=== PATIENT | female | born 1985 | race Caucasian/White ===

== ENCOUNTER 2019-06-21 20:25 | Emergency (ER) | payer OTHER, SELFPAY ==
[2019-06-21 20:46] VITALS: BP 103/69; PULSE 79; RESP 16; TEMP 36.4; O2SAT 100; BMI 19.8
--- NOTE | 2019-06-21 22:19 | ED.WOUNDLAC ---
HPI - Wound/Laceration General Chief Complaint: Wound/Laceration Stated Complaint: Laceration right hand Time Seen by Provider: 06/21/19 21:33 Source: patient Mode of arrival: ambulatory Limitations: no limitations History of Present Illness HPI narrative: 34-year-old female nonsmoker, otherwise healthy presents with laceration on her right hand after she was helping her child open a new pocket knife while camping locally. She has minimal pain and bleeding and full range of motion, strength and sensation. Her tetanus will need to be updated today. She denies other injury and is otherwise well and free of complaint Onset (ago): minute(s) Extremity Location: Right: hand Place: outdoors Patient tetanus UTD: No Context: accidental Associated symptoms: none Related Data Allergies Allergy/AdvReac Type Severity Reaction Status Date / Time No Known Drug Allergies Allergy Verified 06/21/19 20:50 Review of Systems Constitutional Denies chills, Denies fever(s), Denies lethargy and Denies weakness Eyes Denies change in vision, Denies eye discharge, Denies irritation and Denies loss of vision ENT Ears, Nose, Mouth, and Throat: Denies change in voice, Denies neck pain and Denies sore throat Cardiovascular Denies chest pain, Denies irregular heart rhythm, Denies lightheadedness, Denies palpitations, Denies dyspnea, Denies dyspnea on exertion and Denies orthopnea Respiratory Denies cough, Denies dyspnea, Denies dyspnea on exertion and Denies wheezing Gastrointestinal Gastrointestinal: Denies abdominal pain, Denies change in bowel habits, Denies diarrhea, Denies nausea and Denies vomiting Genitourinary Denies hematuria, Denies flank pain, Denies urinary incontinence and Denies urinary urgency Musculoskeletal Denies neck pain Integumentary/Breasts Denies pruritus, Denies erythema, Denies rash and Reports wounds Neurologic Denies confusion, Denies loss of vision and Denies weakness Psychiatric Denies anxiety, Denies confusion, Denies depression, Denies homicidal ideation and Denies suicidal ideation Endocrine Denies palpitations Hematologic/Lymphatic Denies easy bruising Allergic/Immunologic Denies wheezing PFSH Social History Smoking Status: Never smoker Social History Smoking Status: Never smoker Exam Narrative Exam Narrative: GEN: AOx3 and in mild distress EYES: Pupils are equal, round, and reactive to light and accommodation. Extraoccular muscles are intact bilaterally. There is no subconjunctival hemorrhage or exudate. CHEST: Lungs are clear to auscultation bilaterally and free of wheezes, rales, or rhonchi. Heart rate is regular rhythm, there are no murmurs, clicks, rubs, or gallops. There is no chest wall tenderness. ABD: Abdomen is soft and nontender. There is no guarding or rebound. Bowel sounds are normal in all 4 quadrants. There is no mass or organomegaly. EXT: 2 cm linear, clean laceration overlying the thenar eminence of right hand. Visualized in a bloodless field and no deep structures involved. Full strength and sensation with cap refill less than 2 seconds Full painless ROM of all extremities with no loss of sensation or strength. SKIN: Warm, pink, and dry. No erythema or rash Initial Vital Signs Initial Vital Signs: Vital Signs Temperature 97.6 F 06/21/19 20:46 Pulse Rate 79 06/21/19 20:46 Respiratory Rate 16 06/21/19 20:46 Blood Pressure 103/69 06/21/19 20:46 Pulse Oximetry 100 06/21/19 20:46 Procedures Laceration Repair Laceration 1: Site: hand Side (If applicable): right Size (cm): 2 Description: linear Depth: simple, single layer Local Anesthetic: lidocaine 1% Amount of anesthesia used (mL): 3 Pre-repair: wound explored and deep structures intact Skin layer closed with: nylon Size (cm): 5-0 Number of sutures: 4 Course Orders Ordered: Discontinued Medications Diphtheria/Tetanus/Acell Pertussis (Adacel) 0.5 ml IM .ONCE ONE Stop: 06/21/19 22:49 Last Admin: 06/21/19 22:55 Dose: 0.5 ml Tetanus/Diphtheria Toxoids (Td) 0.5 ml IM .ONCE ONE Stop: 06/21/19 22:44 Last Admin: 06/21/19 22:48 Dose: Not Given Vital Signs - 8 hr 06/21/19 20:46 06/21/19 23:07 Temperature 97.6 F Pulse Rate 79 64 Respiratory Rate 16 16 Blood Pressure 103/69 Blood Pressure [Left Arm] 109/60 Pulse Oximetry 100 99 Discharge Plan Departure Patient Disposition: Home Clinical Impression: Laceration Discharge Date/Time: 06/21/19 23:00 Interventions: ED Discharge Assessment Last Done: 06/21/19 23:00 Instructions: DI for Laceration Repair Activity Restrictions/Additional Instructions: Please keep the wound clean and dry to the best of your ability. Please monitor for signs of infection such as redness to the skin or increasing pain. Have the sutures removed by your doctor in about 7 days. If you are unable to get into your doctor, we would be happy to remove the sutures in that same timeframe.
[2019-06-21] MEDS: TET,DIPH,PERTUSS(ACELL),VAC/PF 0.5 ML SYRINGE IM (22:55)
--- NOTE | 2019-06-21 23:06 | PC.NURSE ---
PT has Lac to right palm of hand, son was whittling something with a pocket knife and accidentally cut her on right hand. Bleeding controlled.
[2019-06-21 23:07] VITALS: BP 109/60; PULSE 64; RESP 16; O2SAT 99
== END 2019-06-21 23:00 | disposition home or self-care (01) ==
PROVIDERS: Emergency Provider Emergency Medicine
DX: S61.411A Laceration without foreign body of right hand, initial encounter (principal); W26.0XXA Contact with knife, initial encounter
CPT/HCPCS: 12001; 90471; 99283; 90715